=== PATIENT | male | born 1970 | race African-American/Black ===

== ENCOUNTER 2017-11-30 18:22 | Emergency (ER) | payer SELFPAY ==
[2017-11-30] MEDS ORDERED: RINGERS SOLUTION,LACTATED 1,000 ML IV ONE ×2 (19:06→19:20)
[2017-11-30] MEDS ORDERED: THIAMINE HCL 100 MG, FOLIC ACID 1 MG in NORMAL SALINE 250 ML IV ONE (19:07)
[2017-11-30] MEDS ORDERED: NALOXONE HCL INJ/PF 0.4 MG/1 ML SDV IV ONE (19:21)
--- NOTE | 2017-11-30 19:26 | ER Document Report ---
ED General - General Chief Complaint: ETOH Abuse Stated Complaint: WITHDRAWALS Time Seen by Provider: 11/30/17 19:05 Cannot obtain history due to: Intoxicated, Uncooperative Notes: Patient is a 47-year-old male without chronic medical problems, regular alcohol use although denies daily use who presents after an episode of syncope while drinking with several of his friends. The patient reports that he was drinking hard liquor today although is unable to tell me any additional pieces history due to his level of intoxication. A nephew was present states that while the patient was drinking his eyes rolled into the back of his head and he apparently lost consciousness. EMS was contacted and transported to the emergency department. In route it was noted that he was hypotensive. The patient is unable to give additional history at time of arrival due to his degree of intoxication. Family at the bedside denies any history of similar symptoms in the past. - Related Data Allergies/Adverse Reactions: No Known Allergies Allergy (Unverified 03/22/13 09:33) Past Medical History - General Information source: Parent, Relative - Social History Smoking Status: Current Every Day Smoker Frequency of alcohol use: Occasional Drug Abuse: Marijuana Lives with: Family Family History: Reviewed & Not Pertinent Patient has suicidal ideation: No Patient has homicidal ideation: No Renal/ Medical History: Denies: Hx Peritoneal Dialysis - Immunizations Hx Diphtheria, Pertussis, Tetanus Vaccination: Yes Review of Systems - Review of Systems Notes: Constitutional: Negative for fever. HENT: Negative for sore throat. Eyes: Negative for visual changes. Cardiovascular: Negative for chest pain. Positive for lightheadedness Respiratory: Negative for shortness of breath. Gastrointestinal: Negative for abdominal pain, vomiting or diarrhea. Genitourinary: Negative for dysuria. Musculoskeletal: Negative for back pain. Skin: Negative for rash. Neurological: Negative for headaches, weakness or numbness. 10 point ROS negative except as marked above and in HPI. Physical Exam - Vital signs Vitals: Temp Pulse Resp BP Pulse Ox 98.3 F 90 16 77/43 L 92 11/30/17 18:30 11/30/17 18:30 11/30/17 18:30 11/30/17 18:30 11/30/17 18:30 Interpretation: Hypotensive Notes: PHYSICAL EXAMINATION: GENERAL: Intoxicated but in no acute distress HEAD: Atraumatic, normocephalic. EYES: Pupils equal round and reactive to light, extraocular movements intact, sclera anicteric, conjunctiva are normal. ENT: nares patent, oropharynx clear without exudates. Dry mucous membranes. NECK: Normal range of motion, supple without lymphadenopathy LUNGS: Breath sounds clear to auscultation bilaterally and equal. No wheezes rales or rhonchi. HEART: Regular rate and rhythm without murmurs ABDOMEN: Soft, nontender, normoactive bowel sounds. No guarding, no rebound. No masses appreciated. EXTREMITIES: Normal range of motion, no pitting or edema. No cyanosis. NEUROLOGICAL: Face symmetric. Tongue protrudes midline. Extraocular motions intact. Pupils are 2 mm and equally reactive. Slurred speech, gait deferred. 5 out of 5 strength in both the distal and proximal upper and lower extremities bilaterally. Sensation is grossly intact throughout. Finger to nose testing normal. Pronator drift normal. PSYCH: Intoxicated, somewhat agitated SKIN: Warm, Dry, normal turgor, no rashes or lesions noted. Course - Re-evaluation Re-evalutation: 11/30/17 19:24 Patient presents after having a syncopal episode or near syncopal episode while drinking heavily with his family members. History is somewhat limited as patient is quite intoxicated at time of presentation. His vitals are unremarkable with exception of hypotension initial blood pressure at the time of my evaluation is 80 on 60 with a map of 68. No tachycardia, hypoxia. Neurologic assessment unremarkable with exception of slurred speech. Patient has full distal and proximal strength in the bilateral upper and lower extremities. No facial asymmetry. Visibly dehydrated on examination. Patient denies any coingestions although has a track pam on his bilateral antecubital fossa which his mother states is from "blood donation". The patient denies daily alcohol use. Will give IV fluids, IV thiamine and folate, IV Narcan, obtain labs and reassess. 11/30/17 21:15 Patient's blood pressure has normalized after receiving 2 L of IV fluid. No response to IV Narcan. Labs unremarkable. Patient has become clinically sober. Able to Audra without difficulty. Tolerating oral intake without any difficulty. Denies any ongoing symptoms. Cleared for discharge as I suspect his hypotension and syncope are likely secondary to heavy alcohol use and intoxication. At this time will discharge with return precautions and follow- up recommendations. Verbal discharge instructions given a the bedside and opportunity for questions given. Medication warnings reviewed. Patient is in agreement with this plan and has verbalized understanding of return precautions and the need for primary care follow-up in the next 24-72 hours. - Vital Signs Vital signs: Temp Pulse Resp BP Pulse Ox 98.0 F 90 15 99/66 L 99 11/30/17 22:06 11/30/17 18:30 11/30/17 22:06 11/30/17 22:06 11/30/17 22:06 - Laboratory Result Diagrams: 11/30/17 19:20 11/30/17 19:20 Laboratory results interpreted by me: 11/30/17 19:20 Calcium 8.2 L Total Protein 5.5 L Albumin 3.1 L - EKG Interpretation by Me Additional EKG results interpreted by me: 11/30/17 21:17 Sinus rhythm. Rate 91. Early repolarization pattern. QTC 392. Discharge - Discharge Clinical Impression: Alcohol abuse, Dehydration Syncope Qualifiers: Syncope type: unspecified Qualified Code(s): R55 - Syncope and collapse Hypotension Qualifiers: Hypotension type: unspecified hypotension type Qualified Code(s): I95.9 - Hypotension, unspecified Condition: Stable Disposition: HOME, SELF-CARE Additional Instructions: You were seen in the emergency department today for being drunk. Please return to the emergency room immediately if you experience any concerning symptoms including high fevers, severe headache, chest pain, difficulty breathing, abdominal pain, slurred speech, numbness or weakness in your arms or legs, or any other symptom that concerns you. You were seen today after an episode of passing out. Your EKG here is normal. At this time, we do not feel that your episode of passing out was from any life- threatening cause. Please drink plenty of fluids over the next several days. Return to emergency department if you have any further episodes of syncope, headache, weakness, numbness, chest pain, or shortness of breath. Please follow up closely with your primary care physician. Referrals: LOCALMD,NO [NO LOCAL MD] - Follow up as needed
[2017-11-30 19:37] LABS: ABSOLUTE EOSINOPHILS # (AUTO) 0.1 10^3/uL (0.0-0.6); ABSOLUTE LYMPHOCYTES (AUTO) 1.3 10^3/uL (0.5-4.7); ABSOLUTE MONOCYTES (AUTO) 0.4 10^3/uL (0.1-1.4); ABSOLUTE NEUT (AUTO) 2.8 10^3/uL (1.7-8.2); BASOPHILS % (AUTO) 0.5 % (0-2); EOSINOPHILS % (AUTO) 1.6 % (0-6); HEMOGLOBIN 15.4 g/dL (13.5-17.0); LYMPHOCYTES % (AUTO) 27.4 % (13-45); MEAN CORPUSCULAR HEMOGLOBIN 32.8 pg (27.0-33.4); MEAN CORPUSCULAR HGB CONC 34.3 g/dL (32.0-36.0); MEAN CORPUSCULAR VOLUME 96 fl (80-97); MONOCYTES % (AUTO) 8.4 % (3-13); PLATELET COUNT 247 10^3/uL (150-450); RED BLOOD COUNT 4.71 10^6/uL (4.35-5.55); RED CELL DISTRIBUTION WIDTH 12.9 % (11.5-14.0); SEGMENTED NEUTROPHILS % (AUTO) 62.1 % (42-78); TOTAL CELLS COUNTED % (AUTO) 100 %; WHITE BLOOD COUNT 4.6 10^3/uL (4.0-10.5)
[2017-11-30 19:56] LABS: ALANINE AMINOTRANSFERASE 34 U/L (21-72); ALBUMIN 3.1 g/dL (3.5-5.0); ALCOHOL 210 mg/dL (NONE DETECTED); ALKALINE PHOSPHATASE 38 U/L (38-126); ANION GAP 11 (5-19); ASPARTATE AMINO TRANSFERASE 21 U/L (17-59); BILIRUBIN,DIRECT 0.2 mg/dL (0.0-0.4); BILIRUBIN,TOTAL 0.5 mg/dL (0.2-1.3); BLOOD UREA NITROGEN 11 mg/dL (7-20); CALCIUM 8.2 mg/dL (8.4-10.2); CARBON DIOXIDE 25 mmol/L (22-30); CHLORIDE 105 mmol/L (98-107); GLUCOSE 101 mg/dL (75-110); POTASSIUM 4.1 mmol/L (3.6-5.0); SODIUM 141.2 mmol/L (137-145); TOTAL PROTEIN 5.5 g/dL (6.3-8.2)
--- NOTE | 2017-11-30 20:41 | EKG REPORT ---
SEVERITY:- ABNORMAL ECG - SINUS RHYTHM ST ELEVATION SUGGESTSNORMAL VARIANT. : Confirmed by: Marty Cuevas MD 30-Nov-2017 20:40:52
[2017-11-30 22:12] VITALS: BP 99/66
== END 2017-11-30 22:12 | disposition home or self-care (01) ==
LOC: ER 18:22
DX: F10.129 Alcohol abuse with intoxication, unspecified (principal); E86.0 Dehydration; I95.9 Hypotension, unspecified; R55 Syncope and collapse; F17.200 Nicotine dependence, unspecified, uncomplicated; F12.10 Cannabis abuse, uncomplicated
CPT/HCPCS: 93005; 99284; 96375; 96365; 96366; 36415; 80307; 83605; 85025; 80053; 84484; 93010; J3490; J2310; J3411; J7050; J7120